=== PATIENT | female | born 2000 | race Caucasian/White ===

== ENCOUNTER → 2021-10-12 | Outpatient (CLI) | payer BC ==
[~2021-10-12] MED LIST: FAMO8SU PO; MOXIFLOXACIN; POLTRIOPSO OU; PRED15SY PO
== END | disposition home or self-care (01) ==
LOC: LAB SHORT 16:00 → LAB 16:00
DX: R30.0 Dysuria (principal)
CPT/HCPCS: 87077; 87086; 87186

== ENCOUNTER → 2022-09-18 | Outpatient (CLI) | payer BC ==
[2022-09-21 01:08] LABS: HIV AB/P24 AG SCREEN Non Reactive (Non Reactive)
[2022-09-21 08:08] LABS: HBSAG SCREEN Negative (Negative); HCV ANTIBODY Non Reactive (Non Reactive)
== END | disposition home or self-care (01) ==
LOC: LAB 20:28 → LAB SHORT 20:28
PROVIDERS: Physician Assistant
DX: Z20.9 Contact with and (suspected) exposure to unspecified communicable disease (principal)
CPT/HCPCS: 84460; 86317; 86803; 87340; 87389

== ENCOUNTER → 2022-10-31 | Outpatient (CLI) | payer BC ==
[2022-11-03 01:09] LABS: HIV AB/P24 AG SCREEN Non Reactive (Non Reactive)
== END | disposition home or self-care (01) ==
LOC: LAB 14:51 → LAB SHORT 14:51
PROVIDERS: Physician Assistant
DX: Z20.9 Contact with and (suspected) exposure to unspecified communicable disease (principal)
CPT/HCPCS: 86803; 87389

== ENCOUNTER → 2024-03-03 | Outpatient (CLI) | payer BC ==
[2024-03-08 12:01] LABS: HPV HIGH RISK BY TMA Not Detected; HPV SOURCE Cervical
== END | disposition home or self-care (01) ==
LOC: LAB 18:13 → LAB SHORT 18:13
PROVIDERS: Registered Nurse
DX: Z01.419 Encounter for gynecological examination (general) (routine) without abnormal findings (principal)
CPT/HCPCS: 87624; G0123